=== PATIENT | female | born 1965 | race Caucasian/White ===

== ENCOUNTER 2022-05-06 15:03 | Outpatient (REF) | payer MEDICAID, SELFPAY ==
[2022-05-06 16:06] LABS: Abs Immature Grans 0.03 10^3/uL (0.0-0.06); Absolute Basophil Count 0.07 10^3/uL (0.0-0.2); Absolute Eosinophil Count 0.19 10^3/uL (0.0-0.7); Absolute Lymphocyte Count 3.35 10^3/uL (1.2-3.4); Absolute Neutrophil Count 3.22 10^3/uL (1.2-6.7); Eosinophils % 2.6; HCT 44.8 % (36.0-46.0); HGB 15.6 g/dL (11.2-15.7); Immature Grans % 0.4; Lymphocytes % 45.5; MCH 33.5 pg (27.0-33.0); MCHC 34.8 % (32.0-36.0); MCV 96 fL (80-95); MPV 11.7 fL (8.0-11.0); Monocytes % 6.8; Neutrophils % 43.7; Platelet Count 291 10^3/uL (130-400); RBC 4.65 10^6/uL (3.93-5.22); RDW 13.8 % (11.7-14.6); RDW-SD 49.2 fL; WBC 7.36 10^3/uL (4.4-10.8)
[2022-05-07 09:22] LABS: HIV-1/2 Ag & Ab Screen Negative (Negative)
[2022-05-07 10:12] LABS: Hepatitis A Antibody IgM Negative (Negative); Hepatitis B Core Antibody Negative (Negative); Hepatitis B surface Ag Negative (Negative); Hepatitis C Ab w Rflx HCV PCR Negative (Negative)
[2022-05-07 10:36] LABS: IgA 132 mg/dL (85-499); IgG 520 mg/dL (610-1616); IgM 46 mg/dL (35-242)
[2022-05-07 15:55] LABS: ANA Interpretation Negative (Negative)
[2022-05-07 18:46] LABS: Aspergillus Fumigatus IgE <0.35 kU/L
[2022-05-08 09:38] LABS: IgE 22 IU/mL (<158)
[2022-05-08 14:26] LABS: SS-A Antibody 3.8 Units (<20.0)
[2022-05-08 16:14] LABS: SS-B (La) Ab, IgG 1.3 Units (<20.0)
== END 2022-05-06 15:04 | disposition home or self-care (01) ==
LOC: LBN 15:03
PROVIDERS: PCP Registered Nurse; Visit Provider Physician Assistant Surgical
DX: B37.0 Candidal stomatitis (principal); B37.81 Candidal esophagitis; J42 Unspecified chronic bronchitis; L98.8 Other specified disorders of the skin and subcutaneous tissue; Z11.59 Encounter for screening for other viral diseases; Z11.4 Encounter for screening for human immunodeficiency virus [HIV]
CPT/HCPCS: 82784; 86704; 86709; 86803; 87340; 87389; 82785; 85025; 86003; 86038; 86235